=== PATIENT | female | born 1940 | race Caucasian/White ===

== ENCOUNTER 2017-05-09 15:50 | Inpatient (IN) | payer MEDICARE, OTHER ==
[~2017-05-09] VITALS: Ht 157.5 cm; Wt 65.8 kg
[~2017-05-09 15:50] MED LIST: AMARYL 2MG TABLE2 MG PO; ASPIR 8181 MG PO; CLONIDINE HCL0.3 MG PO; GLUCOPHAGE500 MG PO; METOPROLOL TART25 MG PO; NITROSTAT0.4 MG SL; RANEXA500 MG PO; SYNTHROID 50 M50 MCG PO; TRIAMTERENE-HC1 EAC3 PO; ZESTRIL5 MG PO
[2017-05-09] MEDS ORDERED: COENZYME Q1010 MG PO (22:59)
[2017-05-10 00:58] LABS: HEMOGLOBIN 16.7 gm/dl (12.3-15.3); RED BLOOD COUNT 5.63 M/UL (4.00-5.10); WHITE BLOOD COUNT 15.5 K/UL (4.5-11.0)
--- NOTE | 2017-05-10 08:15 | NUR ---
PATIENT RESTING COMFORTABLY, DENIES N/V AND DIZZINESS. DENIES H/A. FAMILY AT BEDSIDE. WILL CONTINUE TO MONITOR
--- NOTE | 2017-05-10 15:39 | NUR ---
ADMITTING FACILITY REQUEST TO LEAVE PERIPHERAL IV IN PLACED
== END 2017-05-10 15:30 | disposition short-term general hospital (02) | DRG 281 ==
LOC: M/S 22:03
PROVIDERS: Internal Medicine; ADMIT Internal Medicine
DX: I22.2 Subsequent non-ST elevation (NSTEMI) myocardial infarction (principal); E87.2 Acidosis; I44.7 Left bundle-branch block, unspecified; I25.10 Atherosclerotic heart disease of native coronary artery without angina pectoris; I12.9 Hypertensive chronic kidney disease with stage 1 through stage 4 chronic kidney disease, or unspecified chronic kidney disease; N18.9 Chronic kidney disease, unspecified; E78.5 Hyperlipidemia, unspecified; E11.65 Type 2 diabetes mellitus with hyperglycemia; E03.9 Hypothyroidism, unspecified; K21.9 Gastro-esophageal reflux disease without esophagitis; Z98.890 Other specified postprocedural states; Z90.710 Acquired absence of both cervix and uterus; Z80.1 Family history of malignant neoplasm of trachea, bronchus and lung; Z82.5 Family history of asthma and other chronic lower respiratory diseases; Z79.82 Long term (current) use of aspirin; Z79.899 Other long term (current) drug therapy; Z79.84 Long term (current) use of oral hypoglycemic drugs; R11.2 Nausea with vomiting, unspecified; Z83.3 Family history of diabetes mellitus; Z82.49 Family history of ischemic heart disease and other diseases of the circulatory system
CPT/HCPCS: 36415; 80048; 82550; 82553; 82962; 83605; 83690; 84484; 85027; 93005; C9113; J1650; J2550; J7030; J7050

== ENCOUNTER → 2021-02-01 | Outpatient (CLI) | payer OTHER ==
[~2021-02-01] MED LIST changes: +COENZYME Q1010 MG PO
== END ==
LOC: HEART 5 15:20
DX: I08.3 Combined rheumatic disorders of mitral, aortic and tricuspid valves (principal); I27.20 Pulmonary hypertension, unspecified
CPT/HCPCS: 93306

== ENCOUNTER → 2022-01-26 | Outpatient (CLI) | payer MEDICARE | LOC: HEART 5 09:51 | DX: I08.3 Combined rheumatic disorders of mitral, aortic and tricuspid valves (principal); I27.20 Pulmonary hypertension, unspecified | CPT/HCPCS: 93306 ==